=== PATIENT | female | born 1960 | race Caucasian/White ===

== ENCOUNTER 2017-07-11 04:23 | Inpatient (IN) | payer BC, OTHER ==
[~2017-07-11] VITALS: Ht 162.6 cm; Wt 141.5 kg
--- NOTE | 2017-07-11 05:01 | ED.ADGEN ---
Past History Past Medical History: Diabetes, Hypertension Past Surgical History: Other Alcohol Use: None Drug Use: None Adult General Chief Complaint Chief Complaint Dental pain, facial swelling HPI HPI Patient is a 57-year-old giu-[id number] diabetic who presents with right posterior lower molar pain for the past several weeks. Patient was seen by her dentist earlier this week and prescribed hydrocodone and penicillin which she has been compliant with. However, patient awoke with increased pain and swelling right side of her face and malar region there this morning. Patient reports pain with mouth opening, tenderness to palpation. She reports chills, but denies fever or sweats. Denies nausea or vomiting. Denies anterior neck pain , as pain and shortness of breath. No other acute symptoms or complaints. Of note, patient is hypertensive. She states she has been out of her medications for the last month acute loss of insurance but just recently regained her insurance. Patient's accompanied at bedside by her . Review of Systems Review of Systems ROS as per HPI. Current Medications Current Medications Current Medications Medications (Trade) Dose Ordered Sig/Tamika Start Time Stop Time Status Last Admin Dose Admin Clindamycin Phosphate 50 ml @ 100 mls/hr 1X ONCE 07/11/17 05:30 07/11/17 05:59 07/11/17 05:15 100 MLS/HR Info (Do NOT chart on this entry -- for MONITORING) 1 each PRN DAILY PRN 07/11/17 05:30 07/13/17 05:29 Iohexol (Omnipaque 300 Mg/ml) 75 ml 1X ONCE 07/11/17 05:30 07/11/17 05:31 DC 07/11/17 05:29 75 ML Morphine Sulfate (Morphine 4mg Syringe) 4 mg 1X ONCE 07/11/17 06:00 07/11/17 06:01 UNV Ondansetron HCl (Zofran) 4 mg 1X ONCE 07/11/17 05:15 07/11/17 05:26 DC 07/11/17 05:15 4 MG Sodium Chloride 1,000 ml @ 1,000 mls/hr 1X ONCE 07/11/17 05:15 07/11/17 06:14 07/11/17 05:15 1,000 MLS/HR Allergies Allergies Allergies Coded Allergies Type Severity Reaction Last Updated Verified Tetanus Vaccines and Toxoid Allergy Unknown 8/25/17 Yes Physical Exam Physical Exam Constitutional: Well developed, well nourished, moderate discomfort secondary to pain [] HENT: Normocephalic, atraumatic, bilateral external ears normal, oropharynx moist, right posterior lower dental fracture and tenderness. Right submandibular facial fullness tenderness with mild erythema. Pain with opening of the jaw. [] Eyes: PERRLA, EOMI, conjunctiva normal, no discharge. [] Neck: Normal range of motion, no tenderness, supple, no stridor. [] Cardiovascular:Heart rate regular rhythm, no murmur [] Lungs & Thorax: Bilateral breath sounds clear to auscultation Skin:No facial cellulitis. [] Current Patient Data Vital Signs Vital Signs Date Time Temp Pulse Resp B/P (MAP) Pulse Ox O2 Delivery O2 Flow Rate FiO2 07/11/17 05:15 24 93 Room Air 07/11/17 04:44 98.2 88 Lab Results Laboratory Tests Test 07/11/17 05:00 07/11/17 05:15 White Blood Count 9.6 x10^3/uL (4.0-11.0) Red Blood Count 4.78 x10^6/uL (3.50-5.40) Hemoglobin 14.3 g/dL (12.0-15.5) Hematocrit 42.2 % (36.0-47.0) Mean Corpuscular Volume 88 fL (79-100) Mean Corpuscular Hemoglobin 30 pg (25-35) Mean Corpuscular Hemoglobin Concent 34 g/dL (31-37) Red Cell Distribution Width 13.9 % (11.5-14.5) Platelet Count 201 x10^3/uL (140-400) Neutrophils (%) (Auto) 74 % (31-73) H Lymphocytes (%) (Auto) 17 % (24-48) L Monocytes (%) (Auto) 6 % (0-9) Eosinophils (%) (Auto) 3 % (0-3) Basophils (%) (Auto) 0 % (0-3) Neutrophils # (Auto) 7.1 x10^3uL (1.8-7.7) Lymphocytes # (Auto) 1.6 x10^3/uL (1.0-4.8) Monocytes # (Auto) 0.6 x10^3/uL (0.0-1.1) Eosinophils # (Auto) 0.2 x10^3/uL (0.0-0.7) Basophils # (Auto) 0.0 x10^3/uL (0.0-0.2) Sodium Level 138 mmol/L (136-145) Potassium Level 3.7 mmol/L (3.5-5.1) Chloride Level 100 mmol/L (98-107) Carbon Dioxide Level 32 mmol/L (21-32) Anion Gap 6 (6-14) Blood Urea Nitrogen 8 mg/dL (7-20) Creatinine 0.7 mg/dL (0.6-1.0) Estimated GFR (Cockcroft-Gault) 86.9 BUN/Creatinine Ratio 11 (6-20) Glucose Level 220 mg/dL (70-99) H Calcium Level 8.8 mg/dL (8.5-10.1) Total Bilirubin 0.7 mg/dL (0.2-1.0) Aspartate Amino Transferase (AST) 8 U/L (15-37) L Alanine Aminotransferase (ALT) 18 U/L (14-59) Alkaline Phosphatase 79 U/L (46-116) C-Reactive Protein 18.8 mg/L (0-3.3) H Total Protein 7.8 g/dL (6.4-8.2) Albumin 3.4 g/dL (3.4-5.0) Albumin/Globulin Ratio 0.8 (1.0-1.7) L Glucose (Fingerstick) 214 mg/dL (70-99) H EKG EKG [] Radiology/Procedures Radiology/Procedures [CT neck soft tissue: ] Course & Med Decision Making Course & Med Decision Making Pertinent Labs and Imaging studies reviewed. (See chart for details) [Dental caries with soft tissue facial infection. IV fluids pain medication and antibiotics given. Anticipate admission to Dr. Acharya's service if dental office is unable to see today for dental extraction. Care transitioned to oncoming [facility] at 06:00.] Final Impression Final Impression [1. dental caries 2. Facial swelling 3. Hyperglycemia] Problems: Dragon Disclaimer Dragon Disclaimer This electronic medical record was generated, in whole or in part, using a voice recognition dictation system. ERIK REY DO Jul 11, 2017 05:01
[2017-07-11] MEDS ORDERED: IV NORMAL SALINE 1,000ML 1,000 ML IV ONE (05:15)
[2017-07-11] MEDS ORDERED: ONDANSETRON PF 4 MG/2 ML VIAL. IV ONE (05:15)
[2017-07-11] MEDS ORDERED: MORPHINE SULFATE 4 MG/ML DISP.SYRIN. IV ONE ×2 (05:15→06:00)
[2017-07-11] MEDS ORDERED: GLYB2.5T2 PO (05:20)
[2017-07-11] MEDS ORDERED: CARV6.252 PO (05:20)
[2017-07-11] MEDS ORDERED: HYDR12.53 PO (05:20)
[2017-07-11] MEDS ORDERED: GABA-586 PO (05:20)
[2017-07-11] MEDS ORDERED: METF10002 PO (05:20)
[2017-07-11 05:26] LABS: BASO % 0 % (0-3); EOS # 0.2 x10^3/uL (0.0-0.7); EOS % 3 % (0-3); HEMATOCRIT 42.2 % (36.0-47.0); HEMOGLOBIN 14.3 g/dL (12.0-15.5); LYMPH # 1.6 x10^3/uL (1.0-4.8); LYMPH % 17 % (24-48); MEAN CORPUSCULAR HEMOGLOBIN 30 pg (25-35); MEAN CORPUSCULAR HGB CONC 34 g/dL (31-37); MEAN CORPUSCULAR VOLUME 88 fL (79-100); MONO # 0.6 x10^3/uL (0.0-1.1); MONO % 6 % (0-9); NEUT # 7.1 x10^3uL (1.8-7.7); NEUT % 74 % (31-73); PLATELET COUNT 201 x10^3/uL (140-400); RED BLOOD COUNT 4.78 x10^6/uL (3.50-5.40); RED CELL DISTRIBUTION WIDTH 13.9 % (11.5-14.5); WHITE BLOOD COUNT 9.6 x10^3/uL (4.0-11.0)
[2017-07-11] MEDS ORDERED: CLINDAMYCIN 900MG PREMIX 50 ML IV ONE ×2 (05:30→09:15)
[2017-07-11] MEDS ORDERED: CONTRAST GIVEN MC PRN (05:30)
[2017-07-11] MEDS ORDERED: IOHEXOL 300 MG/ML 75 ML VIAL. IV ONE (05:30)
[2017-07-11 05:34] LABS: ALBUMIN 3.4 g/dL (3.4-5.0); ALBUMIN/GLOBULIN RATIO 0.8 (1.0-1.7); C REACTIVE PROTEIN 18.8 mg/L (0-3.3); CALCIUM 8.8 mg/dL (8.5-10.1); CREATININE 0.7 mg/dL (0.6-1.0); GFR 86.9; POTASSIUM 3.7 mmol/L (3.5-5.1); TOTAL BILIRUBIN 0.7 mg/dL (0.2-1.0); TOTAL PROTEIN 7.8 g/dL (6.4-8.2)
--- NOTE | 2017-07-11 06:01 | RAD ---
CT NECK WITH CONTRAST History: Right bottom row tooth decay with swelling, severe pain and raw area in this region, pain and swelling extends from right ear to neck region x 1 week with difficulty swallowing. Comparison: None Technique: Axial helical images of the neck were obtained after the administration of 75 cc IV omnithree 100 contrast. Axial coronal and sagittal reconstruction was performed for a CT soft tissues neck with contrast. PQRS compliance statement: One or more of the following individualized dose reduction techniques were utilized for this examination: 1. Automated exposure control 2. Adjustment of the mA and/or kV according to patient size 3. Use of iterative reconstruction technique Findings: There is prominent soft tissue stranding about the right hemimandible extending from the PICC preauricular region anteriorly toward the midline, and inferiorly along the floor of the mouth musculature. There is mild asymmetry of the airway at this level, likely secondary to adjacent inflammatory changes present. There is mild prominence of the right submandibular gland. A few prominent level I and II lymph nodes are present on the right, likely reactive. No focal fluid collection is seen to suggest abscess. There is apical lucency about the posterior most right mandibular tooth, without evidence of osseous erosion. Fat soft tissue planes of the neck are preserved. There is no prevertebral soft tissue swelling. The thyroid appears normal. The parotid glands are symmetric. Degenerative changes of the cervical spine present. IMPRESSION: Prominent soft tissue stranding throughout the right submandibular and perimandibular region, without a focal fluid collection seen to suggest abscess. Likely reactive adenopathy. Electronically signed by: Cheyenne Carlton MD (07/11/2017 5:58 AM) [facility]
[2017-07-11 09:32] VITALS: BP 202/108
[2017-07-11] MEDS: hydroCHLOROthiazide 25 MG TABLET PO SCH (10:10)
[2017-07-11] MEDS: IV NORMAL SALINE 1,000ML 1,000 ML IV SCH ×3 (10:11→21:53)
[2017-07-11] MEDS: amLODIPine BESYLATE 5 MG TABLET PO SCH (10:16)
[2017-07-11] MEDS: CARVEDILOL 6.25 MG TABLET PO SCH ×2 (10:16→17:21)
[2017-07-11 10:18] VITALS: BP 148/82
--- NOTE | 2017-07-11 10:56 | RAD ---
Chest, 2 views, 07/11/2017: History: Shortness of breath Comparison is made to a study from 01/31/2012. The heart size and pulmonary vascularity are normal. No pulmonary infiltrates are seen. There is no evidence of pleural fluid. IMPRESSION: No acute cardiopulmonary abnormality is detected.
[2017-07-11] MEDS: HYDROcodone/APAP 7.5/325MG 1 TAB TABLET PO PRN (10:59)
[2017-07-11] MEDS ORDERED: HYDROcodone/APAP 7.5/325MG 1 TAB TABLET PO PRN (11:00)
--- NOTE | 2017-07-11 12:15 | HP ---
ADMIT DATE: 07/11/2017 HISTORY OF PRESENT ILLNESS: A 57-year-old female came in with severe swelling to the right submandibular and mandible area. The patient is a diabetic. She has been seen by dentist earlier this week. She has failed outpatient penicillin therapy by her dentist, unable to get in to him today. The patient notes increase in size. There is increased swelling despite the use of the oral antibiotics. She has reported some chilling, but denies fever or sweats. The patient's blood pressure is markedly elevated, and the patient's blood sugars are increased. She will be admitted for IV antibiotic therapy monitoring failure of outpatient oral medication for cellulitis to the jaw. PAST MEDICAL HISTORY: Type 2 diabetes, hypertension. SOCIAL HISTORY: The patient denies smoking, alcohol or drug use. FAMILY HISTORY: Unremarkable. ALLERGIES: Possible allergy to TETANUS VACCINE AND TOXOID. MEDICATIONS: Include metformin 1000 mg b.i.d., Norvasc 5 mg daily, Coreg 6.25 b.i.d., Neurontin 300 mg t.i.d., clindamycin as indicated, penicillin and HydroDIURIL 25 mg daily. REVIEW OF SYSTEMS: The patient denies headaches, vision change or blurred vision, double vision. Does have chills, swelling to the right side of the mandible submandibular area. PHYSICAL EXAMINATION: NECK: Somewhat supple, tender. LUNGS: Diminished throughout, but clear. CARDIOVASCULAR: Regular sinus rhythm, S1, S2. ABDOMEN: Soft, nontender, no rebound or guarding, positive bowel sounds. No hepatosplenomegaly was noted. EXTREMITIES: No clubbing, cyanosis or edema. NEUROLOGIC: Intact. LABORATORY DATA: The patient's white count 9.6, hemoglobin, hematocrit and differential all within normal range. Elevated blood sugars in the 200s. BUN and creatinine are normal as was her sodium, potassium. C-reactive protein elevated at almost 19. IMPRESSION: 1. Cellulitis soft tissue infection of the right submandibular area and right side of the neck. 2. Type 2 diabetes. 3. Morbid obesity. PLAN: Continue with IV antibiotic therapy. assembler for puller over hand to Cleocin and make further evaluation on her as indicated. ANETA SHINE MD DR: TERESA/amol JOB#: [id number] / [id number]
[2017-07-11] MEDS: methylPREDNISolone SOD SUCC PF 125 MG/2 ML VIAL. IV SCH ×2 (13:50→20:38)
[2017-07-11] MEDS: GABAPENTIN 300 MG CAPSULE. PO SCH ×2 (13:51→20:37)
[2017-07-11] MEDS: CLINDAMYCIN 600MG PREMIX 50 ML IV SCH ×2 (13:51→21:53)
[2017-07-11] MEDS ORDERED: ONDANSETRON PF 4 MG/2 ML VIAL. IV PRN (15:15)
[2017-07-11 15:27] VITALS: BP 167/80
[2017-07-11 19:10] VITALS: BP 171/94
[2017-07-11] MEDS ORDERED: IV NORMAL SALINE 100ML 0 ML ONE (20:15)
[2017-07-11 23:19] VITALS: BP 135/80
[2017-07-12] MEDS: IV NORMAL SALINE 1,000ML 1,000 ML IV SCH (05:20)
[2017-07-12] MEDS: CLINDAMYCIN 600MG PREMIX 50 ML IV SCH ×2 (05:20→14:11)
[2017-07-12 05:42] LABS: BASO % 0 % (0-3); EOS % 0 % (0-3); HEMATOCRIT 43.2 % (36.0-47.0); HEMOGLOBIN 14.3 g/dL (12.0-15.5); LYMPH # 0.8 x10^3/uL (1.0-4.8); LYMPH % 7 % (24-48); MEAN CORPUSCULAR HEMOGLOBIN 29 pg (25-35); MEAN CORPUSCULAR HGB CONC 33 g/dL (31-37); MEAN CORPUSCULAR VOLUME 89 fL (79-100); MONO # 0.1 x10^3/uL (0.0-1.1); MONO % 1 % (0-9); NEUT # 10.4 x10^3uL (1.8-7.7); NEUT % 91 % (31-73); PLATELET COUNT 213 x10^3/uL (140-400); RED BLOOD COUNT 4.88 x10^6/uL (3.50-5.40); RED CELL DISTRIBUTION WIDTH 13.3 % (11.5-14.5); WHITE BLOOD COUNT 11.4 x10^3/uL (4.0-11.0)
[2017-07-12 06:29] VITALS: BP 153/79
--- NOTE | 2017-07-12 06:43 | ACF ---
Admission Criteria Forms CELLULITIS Clinical Indications for Admission to Inpatient Care ([place]/check or initial the applicable condition/criteria) Admission is indicated for ANY ONE of the following(1)(2)(3)(4)(5): [ ]I. Limb-threatening infection [ ]II. High-risk comorbid condition as indicated by ANY ONE of the following: [ ]a) Uncontrolled diabetes (eg, HbA1c greater than 10% (0.1)) [ ]b) Cirrhosis [ ]c) Neutropenia [ ]d) Asplenia(12) [ ]e) Immunosuppression [ ]f) Symptomatic heart failure [ ]III. Failure of outpatient therapy as indicated by ALL of the following(6): [ ]a) Progression or no improvement after adequate trial (minimum of 48 hours, with longer period for stable lower extremity infection) [ ]b) Adequate antibiotic regimen as indicated by use of ANY ONE of the following: [ ]i) First-generation cephalosporin (e.g., cephalexin) [ ]ii) Antistaphylococcal penicillin (e.g., dicloxacillin) [ ]iii) Penicillin-allergic patient regimen (clindamycin, extended-spectrum fluoroquinolone, or doxycycline) [ ]iv) Resistant organism (eg, methicillin-resistant Staphylococcus aureus) regimen (7)(8) [ ]c) Outpatient intravenous therapy regimen is not appropriate due to ANY ONE of the following. (9)(10) [ ]i) It was tried and was not successful (eg, progression of infection). [ ]ii) It is not available or cannot be arranged in a clinically appropriate time frame (e.g., the next day). [ ]iii) Clinical presentation (eg, acuity of infection, rapidity of progression, confirmed or suspected bacteremia) is judged to require ALL of the following: [ ]1) Immediate initiation of intravenous therapy ( eg, cannot wait for next day) [ ]2) Intensity of patient monitoring and observation (eg, vital sign measurement, checks for infection progression) that cannot be provided at other than inpatient level of care [ ]IV. Altered Mental status that is severe or persistent [ ]V. Bacteremia [ ]. Hemodynamic instability [ ]VII. Suspected necrotizing soft tissue infection (e.g., gas in tissue)(13)( 14)(15) [ ]VIII. Orbital infection (16)(17) [ ]XI. Associated surgical procedure (e.g., abscess drainage, debridement) not amenable to outpatient, emergency department, or observation care [ ]X. Cutaneous gangrene(19) [ ]XII. High fever (temperature greater than 39.5 degrees C (103.1 degrees F) (oral)) not responsive to outpatient, emergency department, or observation care therapy(20)(21) [X]XIII. Inpatient admission required [A]rather than observation care (Also use Cellulitis: Observation Care as appropriate) because of ANY ONE of the following(22)(23): [ ]a) Periorbital or perineal infection that is severe or worsening [X]b) Severe pain requiring acute inpatient management [ ]b) IV fluid to replace significant ongoing (e.g., for over 24 hours) losses (greater than 3 L/m2 per day) [ ]b) Compartment syndrome monitoring (24) [ ]b) Strict or protective (eg, laminar flow) isolation) [ ]b) Urgent debridement or skin grafting [ ]b) Bone or joint debridement [ ]b) Immediate inpatient surgery [ ]b) Other condition, treatment, or monitoring requiring inpatient admission Extended stay beyond goal length of stay may be needed for(18)(36)(37)(38)(39)( 40)(41) [ ]a) Necrotizing soft tissue infection or fasciitis(13)(42) [ ]b) Gram-negative infection [ ]c) Methicillin-resistant Staphylococcal aureus (MRSA) infection(7)(43) [ ]d) Peripheral venous insufficiency with cellulitis [ ]e) Extensive edema [ ]f) Sepsis or continued Hemodynamic instability [ ]g) Continued high fever or mental status change [ ]h) Bacteremia(43) [ ]i) Active serious comorbid conditions ( eg, heart failure, renal insufficiency) The original [employer] content created by [employer] has been revised. The portions of the content which have been revised are identified through the use of italic text, and [employer] [facility] [employer] has neither reviewed nor approved the modified material. All other unmodified content is copyright [employer] [facility] Please see references footnoted in the original [employer] [facility] edition 2014 Admission Criteria Met?: Yes PEGGY BAZZI Jul 12, 2017 06:42
[2017-07-12] MEDS ORDERED: INSULIN ASPART 300 UNITS/3 ML INSULN.PEN SQ ONE (08:00)
[2017-07-12] MEDS ORDERED: DEXTROSE 50% 25 GM / 50ML DISP.SYRIN. IV PRN (08:00)
[2017-07-12] MEDS: GABAPENTIN 300 MG CAPSULE. PO SCH ×2 (08:13→14:10)
[2017-07-12] MEDS: amLODIPine BESYLATE 5 MG TABLET PO SCH (08:13)
[2017-07-12] MEDS: CARVEDILOL 6.25 MG TABLET PO SCH (08:13)
[2017-07-12] MEDS: hydroCHLOROthiazide 25 MG TABLET PO SCH (08:13)
[2017-07-12] MEDS: methylPREDNISolone SOD SUCC PF 125 MG/2 ML VIAL. IV SCH (08:13)
[2017-07-12] MEDS: INSULIN ASPART 300 UNITS/3 ML INSULN.PEN SQ SCH ×2 (08:30→12:28)
[2017-07-12 10:44] VITALS: BP 148/71
[2017-07-12] MEDS: HYDROcodone/APAP 7.5/325MG 1 TAB TABLET PO PRN (10:52)
[2017-07-12 13:25] VITALS: BP 137/85
[2017-07-12] MEDS ORDERED: CLIN300C3 PO ×2 (15:06→15:07)
[2017-07-12] MEDS ORDERED: PRED20TA PO (15:08)
[2017-07-12] MEDS ORDERED: INSU100I17 SQ (15:11)
[2017-07-12] MEDS ORDERED: CARVEDILOL 6.25 MG TABLET PO SCH (17:00)
[2017-07-12] MEDS ORDERED: CARVEDILOL 12.5 MG TABLET PO SCH (17:00)
--- NOTE | 2017-07-12 20:36 | PN ---
DATE: SUBJECTIVE: The patient actually what looks like cellulitis or erysipelas to the right side of her face and neck area. She is able to breathe better and swallow better with the IV Solu-Medrol. She had failed outpatient penicillin her oral surgeon had given her. In any case, with a combination IV Solu-Medrol and Cleocin, she has made excellent progress although last night she did spike a low-grade temperature of 99.1. OBJECTIVE: VITAL SIGNS: Blood pressure has come down gradually to 148/70, respiratory rate 20, pulse 90, afebrile, oxygen saturation 92%. HEENT: The patient's right side of her face was markedly swollen, but better than it was. Actually, the redness extends from the right side of the face down into the neck and around good part of the front of the neck consistent with erysipelas. In any case, the patient seems to be making good progress overall. LUNGS: Clear. ABDOMEN: Soft, nontender, protuberant. Blood cultures have been negative. IMPRESSION: Cellulitis to the face, erysipelas, dysphagia secondary to the swelling. Continue on IV antibiotic therapy, type 2 diabetes, made worse with the steroids. Taper down off the steroids, give her sliding scale Humalog and make further evaluation and treatment on that as indicated. ANETA SHINE MD DR: TERESA/amol JOB#: [id number] / [id number]
[2017-07-13] MEDS ORDERED: metFORMIN 500 MG TABLET PO SCH ×2 (08:00)
[2017-07-13] MEDS ORDERED: predniSONE 20 MG TABLET PO SCH (09:00)
== END 2017-07-12 16:07 | disposition home or self-care (01) | DRG 158 ==
LOC: ER 04:23 → 1 SOUTH 08:59
PROVIDERS: ADMIT Family Medicine; ATTEND Family Medicine
DX: K12.2 Cellulitis and abscess of mouth (principal); L03.221 Cellulitis of neck; Z68.43 Body mass index [BMI] 50.0-59.9, adult; E66.01 Morbid (severe) obesity due to excess calories; R13.19 Other dysphagia; E11.65 Type 2 diabetes mellitus with hyperglycemia; I10 Essential (primary) hypertension; L03.211 Cellulitis of face; A46 Erysipelas; K08.9 Disorder of teeth and supporting structures, unspecified
CPT/HCPCS: 36415; 70491; 71020; 80053; 82947; 83605; 85025; 85651; 86140; 87040; 96365; 96375; 96376; J1815; J2270; J2405; J2930; J3490; Q9967; 99285-25; J7030

== ENCOUNTER → 2018-01-29 | Outpatient (CLI) | payer OTHER ==
[~2018-01-29] MED LIST: CARV6.252 PO; CLIN300C3 PO; GABA-586 PO; GLYB2.5T2 PO; HYDR12.53 PO; INSU100I17 SQ; METF10002 PO; PRED20TA PO
--- NOTE | 2018-01-29 11:02 | RAD ---
Bilateral lower extremity venous duplex ultrasound. 01/29/2018 10:59 AM Indication: Bilateral calf pain Comparison study: None Discussion: Sonographic evaluation of the deep veins of the bilateral lower extremities was performed. This includes grayscale imaging and color duplex imaging with spectral analysis. No evidence of deep venous thrombosis is seen. Interrogated veins are compressible and demonstrate augmentable blood flow and color Doppler imaging. Impression: No evidence of deep venous thrombosis involving either lower extremity.
--- NOTE | 2018-01-29 11:05 | RAD ---
Bilateral lower extremity arterial duplex ultrasound 01/29/2018 Indication: Diminished sensation to the legs. Bilateral calf pain. Comparison study: None available Discussion: Ultrasound evaluation of the major arteries of the bilateral ultrasound is performed including color Doppler imaging spectral analysis. Right lower extremity: Normal waveforms and velocities are seen throughout the right lower extremity. No focal area of increased velocity suggestive of hemodynamically significant stenosis is identified. No significant visual narrowings are seen on color Doppler imaging. Left lower extremity: Normal waveforms and velocities are seen throughout the left lower extremity. No focal area of increased velocity suggest hemodynamic significant stenosis is identified. No significant visual narrowings are seen on color Doppler imaging. Impression: No sonographic evidence of hemodynamically significant stenosis involving the major arteries of either lower extremity.
== END | disposition home or self-care (01) ==
LOC: US 07:48
PROVIDERS: ATTEND Nurse Practitioner Adult Health
DX: M79.661 Pain in right lower leg (principal); M79.662 Pain in left lower leg; R20.8 Other disturbances of skin sensation
CPT/HCPCS: 93925; 93970

== ENCOUNTER → 2018-05-06 | Outpatient (CLI) | payer OTHER ==
[~2018-05-06] MED LIST changes: +IOHEXOL 240 MG/ML 50ML VIAL. ONE; +IOHEXOL 300 MG/ML 50 ML VIAL. IV ONE; -METF10002 PO; +METF10003 PO
--- NOTE | 2018-05-06 12:43 | RAD ---
EXAM: Abdomen and pelvis CT with intravenous contrast. HISTORY: Pain and bloating. TECHNIQUE: Computed tomographic images of the abdomen and pelvis were obtained following the administration of 100 cc Omnipaque 300 intravenous contrast. Multiplanar reformatting was performed. *One or more of the following individualized dose reduction techniques were utilized for this examination: 1. Automated exposure control. 2. Adjustment of the mA and/or kV according to patient size. 3. Use of iterative reconstruction technique. COMPARISON: None. FINDINGS: Evaluation of the lower thorax is unremarkable. There is hepatomegaly and hepatic steatosis. There are surgical clips along the posterior right hepatic dome. The gallbladder is surgically absent. There is common bile duct dilatation likely due to reservoir effect status post cholecystectomy. There is slight fatty stranding surrounding the proximal pancreas. However, this appears to be associated with nonspecific stranding within the mesenteric root. No convincing pancreatitis is seen. The spleen is upper normal in size. This is within limits for body habitus. The adrenal glands are unremarkable. There is no obstructive uropathy. No solid or cystic renal lesion is seen. There is no appendicitis. There is mild distal colonic wall thickening likely due to relative under distention. There is no pericolonic stranding to suggest colitis. There is no small bowel obstruction. There is evidence of prior ventral abdominal wall hernia repair. There is a tiny fat-containing midline ventral abdominal wall hernia along the superior aspect of the surgical mesh. There is ventral midline abdominal wall scarring. The bladder is unremarkable. The uterus is surgically absent. The ovaries are unremarkable. There is no lymphadenopathy. There is no suspicious osseous lesion. IMPRESSION: 1. Hepatomegaly and hepatic steatosis. There are postoperative changes along the posterior right hepatic lobe. 2. Findings consistent with ventral abdominal wall hernia repair. There is a tiny fat-containing hernia along the superior aspect of the surgical mesh. 3. Slight stranding within the root of the mesentery, a nonspecific finding. This is not within limits to suggest mesenteric panniculitis. 4., Bile duct dilatation, likely due to reservoir effect status post cholecystectomy. Electronically signed by: Coral Giordano MD (05/06/2018 12:39 PM) [place] [id number]
== END | disposition home or self-care (01) ==
LOC: CT 10:39
PROVIDERS: ATTEND Nurse Practitioner Adult Health
DX: K76.0 Fatty (change of) liver, not elsewhere classified (principal); K43.9 Ventral hernia without obstruction or gangrene; R16.0 Hepatomegaly, not elsewhere classified; Z90.49 Acquired absence of other specified parts of digestive tract; Z98.890 Other specified postprocedural states
CPT/HCPCS: 74177; Q9966; Q9967

== ENCOUNTER → 2021-03-23 | Outpatient (CLI) | payer OTHER ==
[~2021-03-23] MED LIST changes: -CARV6.252 PO; +CARV6.2541 PO; -HYDR12.53 PO; +HYDR12.572 PO; -IOHEXOL 240 MG/ML 50ML VIAL. ONE; -IOHEXOL 300 MG/ML 50 ML VIAL. IV ONE; -METF10003 PO; +METF10007 PO
--- NOTE | 2021-03-24 08:42 | RAD ---
EXAM: Lower extremity arterial Doppler sonogram with ankle-brachial indices (SHASHANK). HISTORY: Diminished pulses. Diabetes. Hypertension. Neuropathy. Peripheral vascular disease. TECHNIQUE: Doppler sonographic evaluation of the lower extremities was performed and pressure reading s were assessed. FINDINGS: Right brachial pressure: 144 mmHg Left brachial pressure: 134 mmHg Right ankle pressure (dorsalis pedis): 154 mmHg Right ankle pressure (posterior tibial): 156 mmHg Right SHASHANK: 1.1 Left ankle pressure (dorsalis pedis): 152 mmHg Left ankle pressure (posterior tibial): 148 mmHg Left SHASHANK: 1.1 IMPRESSION: Normal bilateral ankle-brachial indices. Electronically signed by: Coral Giordano MD (03/24/2021 8:39 AM) [facility]
--- NOTE | 2021-03-24 10:31 | RAD ---
CT abdomen and pelvis without contrast: Reason for examination: Chronic right lower quadrant pain. Part of the liver removed due to a cyst. Comparison is made to previous study dated 05/06/2018. Helical images were obtained through the abdomen and pelvis with no intravenous or oral contrast admi nistered. Reconstruction was performed in sagittal and coronal planes. Exposure: One or more of the following individualized dose reduction techniques were utilized for thi s examination: 1. Automated exposure control 2. Adjustment of the mA and/or kV according to patient size 3. Use of iterative reconstruction technique. The lung bases are clear. The heart size is normal with no pericardial effusion. There appear to be postop changes in the liver along the right posterior hepatic dome. No focal hepat ic lesions are present. There does be fatty infiltration of the liver. Spleen appears be borderline e nlarged without focal lesion. No focal abnormalities are seen at the adrenal glands or pancreas. Gall bladder is surgically absent. The abdominal aorta and inferior vena cava show no acute abnormalities. The colon shows no diverticulosis, diverticulitis or colitis. No abnormality seen at the appendix. T he small intestinal tract shows no abnormal dilatation, wall thickening or apparent obstruction. No a bnormality seen at the stomach or duodenum. The kidneys show no renal masses, renal calculi, hydronep hrosis or evidence of obstructive uropathy. There continues to be some mild haziness in the fat aroun d the mesenteric root which may reflect some inflammatory change. The bladder is not distended. No abnormality seen at the vaginal cuff. No pelvic masses are present. No free fluid or free air seen in the abdomen or pelvis. No acute bony abnormalities are seen. IMPRESSION: Fatty liver without a focal lesion. Borderline splenomegaly. Mild fatty stranding at the mesenteric root which may reflect some inflammatory changes. No other focal abnormality seen in the abdomen or pelvis. Electronically signed by: Tiffany Lima MD (03/24/2021 10:28 AM) [facility]
== END ==
LOC: US 09:49
PROVIDERS: ATTEND Nurse Practitioner Adult Health
DX: I73.9 Peripheral vascular disease, unspecified (principal); M79.89 Other specified soft tissue disorders; I10 Essential (primary) hypertension
CPT/HCPCS: 74176; 93922